=== PATIENT | female | born 1960 | race Caucasian/White ===

== ENCOUNTER 2016-08-27 20:13 | Emergency (ER) | payer BC ==
[~2016-08-27 20:13] MED LIST: ADULT LOW DOSE81 M1 PO; ALLEGRA-D1 TAB.SR . PO; ASACOL400 MG PO; ASPIRIN LOW STR81 MG PO; ASPIRIN325 M3 PO; BACTRIM DS TABL1 TAB PO; BENADRYL ALLERG25 M PO; BENADRYL ALLERG25 M1 PO; BENADRYL25 MG PO; CELEBREX200 MG PO; CELEXA40 M2 PO; CELEXA40 MG PO; CITALOPRAM HBR40 MG PO; COLD RELIEF PO; CRESTOR20 MG PO; CRESTOR20 MG/TAB PO; CULTURELLE1 CA1 PO; CULTURELLE1 EAC1 PO; D3 DOTS2000 UNIT PO; FLAGYL250 MG PO; FLAGYL500 MG PO; IRON325 M2 PO; K CL-2020 MEQ/15 PO; KLOR-CON M2020 MEQ PO; KLOR-CON20 MEQ PO; LEVAQUIN500 MG PO; MOBIC15 M2 PO; MOTRIN800 MG PO; NORCO 5/325 TAB1 TAB PO; NUCYNTA50 MG PO; OMEPRAZOLE20 M4 PO; POTASSIUM20 MEQ/15 PO; POTASSIUM40 MEQ/15 PO; PROTONIX40 M2 PO; PROTONIX40 MG PO; ROXICODONE5 M2 PO; SENNA PLUS TAB1 EAC1 PO; SPIRONOLACTONE50 M1 PO; TYLENOL325 M2 PO; ULTRAM50 M1 PO; VALTREX500 M1 PO; VALTREX500 MG PO; XARELTO10 MG PO; ZOFRAN4 MG PO; [UNRECOGNIZED DRUG - OTHER] PO; [UNRECOGNIZED DRUG - OTHER] PO; [UNRECOGNIZED DRUG - REMARK]
[2016-08-27] MEDS ORDERED: BACTRIM DS TAB1 EAC2 PO (21:16)
== END 2016-08-27 21:25 ==
LOC: EDMED 20:13
DX: L03.115 Cellulitis of right lower limb (principal); E78.5 Hyperlipidemia, unspecified; K21.9 Gastro-esophageal reflux disease without esophagitis